=== PATIENT | male | born 1960 | race Caucasian/White ===

== ENCOUNTER → 2021-06-24 08:18 | Outpatient (BNVA) | payer OTHER, SELFPAY | PROVIDERS: Family Provider Internal Medicine; PCP Clinical Nurse Specialist Adult Health; Visit Provider Thoracic Surgery (Cardiothoracic Vascular Surgery) | DX: Z01.818 Encounter for other preprocedural examination (principal); Z20.822 Contact with and (suspected) exposure to COVID-19 | CPT/HCPCS: 87635 ==

== ENCOUNTER 2021-06-29 08:57 | Day surgery (SDC) | payer OTHER, SELFPAY ==
[2021-06-24 09:41] VITALS: BMI 34.5
[2021-06-24 10:11] LABS: Basophils # 0.1 10^3/uL (0.0-0.1); Basophils % 0.8 %; Eosinophils # 0.2 10^3/uL (0.0-0.8); Eosinophils % 2.8 %; Hematocrit 48.3 % (42.0-52.0); Hemoglobin 16.1 g/dL (11.7-16.6); Lymphocytes # 2.5 10^3/uL (0.8-4.8); Lymphocytes % 34.1 %; Mean Corpuscular HGB Conc 33.3 g/dL (30.0-36.0); Mean Corpuscular Hemoglobin 32.2 pg (28.0-34.0); Mean Corpuscular Volume 96.6 fl (80-94); Mean Platelet Volume 11.1 fL (7.4-10.4); Monocytes # 0.7 10^3/uL (0.2-0.9); Monocytes % 9.6 %; Neutrophils # 3.89 10^3/uL (1.8-7.7); Neutrophils % 52.6 %; Nucleated Red Blood Cells % 0 %; Platelet Count 218 10^3/cmm (130-400); Red Cell Distribution Width 13.2 % (12.1-15.1); White Blood Count 7.4 10^3/uL (4.0-10.0)
[2021-06-24 10:29] LABS: Anion Gap 12.1 (5-19); Blood Urea Nitrogen 15 mg/dL (8-23); Calcium 9.2 mg/dL (8.5-10.5); Carbon Dioxide 27 mmol/L (22-29); Chloride 103 mmol/L (98-107); Glomerular Filtration Rate 85.8 mL/min (90-130); Glucose 111 mg/dL (65-115); Osmolality Calculated 288 mOsm/kg (285-295); Potassium 4.1 mmol/L (3.5-5.1); Sodium 138 mmol/L (136-145)
--- NOTE | 2021-06-24 10:36 | P.ANESASSM_ITS ---
Pre-Anesthetic Assessment Pre-Anesthetic Assessment: Height/Weight: Height 1.68 m Weight 97.069 kg Proposed Procedure: Operation Date: 06/29/21 09:30 Proposed Procedures p Pacemaker Exchange(Not Applicable) - Memo Pedroza MD Was Beta Mary taken within 24 hours: Yes Was Clonidine taken within 24 hours: N/A Social: Social History: No alcohol and No tobacco Exam: Pre-Anes Outpt Exam: alert, oriented x 3, clear to auscultation bilaterally and regular rate & rhythm Airway: Submandibular: WNL Cervical ROM: WNL MP: 2 Dentition: False (upper) CV/HEM: CV/HEM: Angina (Stable), Arrythmia, CAD and HTN Comments: Pacemaker GI: GI: GERD Metabolic: Metabolic: Morbid obesity Anesthetic Plan: ASA status: 3 Anesthesia: MAC Risk of > 500 ml blood loss (7ml/kg in children): No PFSH Anesthesia PFSH: Medical History Heart block atrioventricular HTN (hypertension) Surgical History S/P cardiac pacemaker procedure Family History Mother CAD (coronary artery disease) Sister CAD (coronary artery disease) Brother CAD (coronary artery disease) Father Cancer Data Anesthesia CBC & Chem 7: 06/24/21 09:56 06/24/21 09:56 Other Labs: Laboratory Results - last 48 hr 06/24/21 06/24/21 09:56 09:56 WBC 7.4 RBC 5.00 Hgb 16.1 Hct 48.3 MCV 96.6 H MCH 32.2 MCHC 33.3 RDW 13.2 Plt Count 218 MPV 11.1 H Neut % (Auto) 52.6 Lymph % (Auto) 34.1 [place] % (Auto) 9.6 Eos % (Auto) 2.8 Baso % (Auto) 0.8 Neut # (Auto) 3.89 Lymph # (Auto) 2.5 [place] # (Auto) 0.7 Eos # (Auto) 0.2 Baso # (Auto) 0.1 Nucleated RBC % (auto) 0 Nucleated RBCs # 0.0 Sodium 138 Potassium 4.1 Chloride 103 Carbon Dioxide 27 Anion Gap 12.1 BUN 15 Creatinine 0.9 GFR Calculation 85.8 L Glucose 111 Calculated Osmolality 288 Calcium 9.2 Cardiac Studies: No Data to Display
[2021-06-29] VITALS (7 sets, daily range): BP systolic 111–149; BP diastolic 66–80; PULSE 65–71; RESP 14–17; TEMP 36.4–36.5; O2SAT 94–98
--- NOTE | 2021-06-29 09:02 | XR_ITS ---
WS: [id number] XR chest 1V portable [id number] REASON FOR EXAM: Pacemaker generator exchange FINDINGS: The chest is unchanged compared to previous examination 04/14/2015. Battery pack over the left upper anterolateral chest with intact leads to the right atrium and right ventricular apex. No significant cardiomegaly. Calcified granulomatous disease in both hemithoraces. No active pulmonary parenchymal or pleural dise ase. XR/XR chest 1V portable [id number] IMPRESSION: Stable chest without acute abnormality.
[2021-06-29] MEDS: sodium chloride 0.9% 1,000 ML 30 ML IV (09:43)
[2021-06-29 10:03] LABS: Basophils # 0.1 10^3/uL (0.0-0.1); Basophils % 0.8 %; Eosinophils # 0.3 10^3/uL (0.0-0.8); Eosinophils % 2.8 %; Hematocrit 51.1 % (42.0-52.0); Hemoglobin 16.5 g/dL (11.7-16.6); Lymphocytes # 4.1 10^3/uL (0.8-4.8); Lymphocytes % 38.9 %; Mean Corpuscular HGB Conc 32.3 g/dL (30.0-36.0); Mean Corpuscular Hemoglobin 32.4 pg (28.0-34.0); Mean Corpuscular Volume 100.4 fl (80-94); Mean Platelet Volume 11.6 fL (7.4-10.4); Monocytes % 9.4 %; Neutrophils # 5.04 10^3/uL (1.8-7.7); Neutrophils % 47.9 %; Nucleated Red Blood Cells % 0 %; Platelet Count 244 10^3/cmm (130-400); Red Blood Count 5.09 10^6/uL (4.1-5.3); Red Cell Distribution Width 13.1 % (12.1-15.1); White Blood Count 10.5 10^3/uL (4.0-10.0)
--- NOTE | 2021-06-29 10:17 | ANES.PAUD2 ---
Pre-Anesthetic Update Pre-Anesthetic Assessment: Date of Surgery/Procedure: 06/29/21 Preop Diagnosis: Pacemaker end of service Proposed Procedure: Operation Date: 06/29/21 10:40 Proposed Procedures p Pacemaker Exchange(Not Applicable) - Memo Pedroza MD Any changes to Pre-Anesthetic Assessment?: No Last Intake: Intake Last Liquid Date 06/28/21 Last Liquid Time 19:00 Last Solid Date 06/28/21 Last Solid Time 19:00 Labs Last 48hrs: Laboratory Results - last 48 hr 06/29/21 09:35 WBC 10.5 H RBC 5.09 Hgb 16.5 Hct 51.1 MCV 100.4 H MCH 32.4 MCHC 32.3 RDW 13.1 Plt Count 244 MPV 11.6 H Neut % (Auto) 47.9 Lymph % (Auto) 38.9 [place] % (Auto) 9.4 Eos % (Auto) 2.8 Baso % (Auto) 0.8 Neut # (Auto) 5.04 Lymph # (Auto) 4.1 [place] # (Auto) 1.0 H Eos # (Auto) 0.3 Baso # (Auto) 0.1 Nucleated RBC % (a uto) 0 Nucleated RBCs # 0.0 Vitals: Temperature 97.5 F L 06/29/21 09:09 Temperature Source Temporal Artery S can 06/29/21 09:09 Pulse Rate 65 06/29/21 09:09 Respiratory Rate 17 06/29/21 09:09 Blood Pressure 149/70 06/29/21 09:09 Blood Pressure Radha n 96 06/29/21 09:09 Pulse Oximetry 98 06/29/21 09:09 Oxygen Delivery Me thod 06/29/21 09:12 Exam: Pre-Anes Outpt Exam: alert, oriented x 3, clear to auscultation bilaterally and regular rate & rhythm Cardiac Studies: No Data to Display
[2021-06-29 10:20] LABS: Blood Urea Nitrogen 23 mg/dL (8-23); Carbon Dioxide 21 mmol/L (22-29); Chloride 102 mmol/L (98-107); Glucose 106 mg/dL (65-115); Osmolality Calculated 284 mOsm/kg (285-295); Sodium 135 mmol/L (136-145)
[2021-06-29 10:20] LABS: Add Urine Microscopic? NO
[2021-06-29 10:22] LABS: Anion Gap 16.5 (5-19); Potassium 4.5 mmol/L (3.5-5.1)
[2021-06-29 10:22] LABS: Charge for UA Resulting for Rev
[2021-06-29 10:23] LABS: Bilirubin Urine 1+ (Negative); Blood Urine Neg (Negative); Glucose Urine UA Norm (Normal); Ketones Urine Negative (Negative); Leukocyte Esterase Urine Negative (Negative); Nitrate Urine Negative (Negative); Protein Urine Neg (Negative); Specific Gravity, Urine 1.015 (1.005-1.030); Urine Appearance SL Hazy (CLEAR); Urine Color Yellow (Yellow); Urobilinogen Urine 1 mg/dL (Negative); pH Urine 5 (5-7)
--- NOTE | 2021-06-29 13:02 | W.PM.OPSUD ---
Surgery/Procedure H&P Update DATE OF PROCEDURE: June 29, 2021 DATE H&P PERFORMED: 06/12/21 H&P UPDATE INFORMATION: I have reviewed H&P completed within last 30 days, I have examined patient prior to procedure and No changes to prior documentation PREOP DIAGNOSIS: Pacemaker end of service PRIMARY INDICATION FOR PROCEDURE: Pacemaker at end of service. PLANNED PROCEDURE: Operation Date: 06/29/21 10:40 Proposed Procedures p Pacemaker Exchange(Not Applicable) - Memo Pedroza MD
[2021-06-29] MEDS: ceFAZolin 1,000 mg SDV 1000 MG IRRIGATION (13:49)
[2021-06-29] MEDS: lidocaine 1% INJ 20 mL 12 ML SUBCUT (13:49)
--- NOTE | 2021-06-29 14:48 | P.OP_ITS ---
Operative Report Date of procedure: June 29, 2021 Pre-op Diagnosis: Pacemaker end of service Post-op diagnosis: same Procedure Done: Pacemaker generator exchange Implants: [employer]onic pacemaker Specimens removed/disposition: Depleted pacemaker return to [employer] equal opportunity representative Pathology: none sent Surgeon: Memo Pedroza Anesthesia: MAC and Local Complications: None Condition: stable Disposition: PACU Brief History: Mr. Avalos is a pleasant 60-year-old gentleman with a dual chamber pacemaker in place with generator now end of service. His pacemaker system was implanted in [address] Rao. It has been functioning well, now with the pacing generator depleted. He presents today for planned pacemaker generator exchange. Details and risk of the procedure were carefully and frankly discussed. Proper consents were reviewed and signed. Procedure: Mr. Avalos was appropriately positioned and sterilely prepped and draped. IV consicious sedation was given with anesthesia monitoring. 1% lidocaine was infiltrated through the prior insertion incision site. # 15 sca lpel blade was used to incise the skin down to subcutaneous layer. Subsequently, using sharp and blunt dissection the pseudocapsule to the old generator was reached and opened with a scalpel blade. This area was then enhanced utilizing Metzenbaum scissors with care taken not to injure the pacing leads. Once the pocket was adequate opened, hemostats were utilized to deliver the old generator. Set screws were released and the leads were removed and inserted properly into the new generator with set screws then secured. The old generator was removed from the field. The incision was irrigated with antibiotic solution. Hemostasis was confirmed. The new generator was placed back into the old subcutaneous pocket. The wound was then closed in 2 layers of 3-0 Vicryl suture. Skin was closed in a subcuticular manner with 4-0 undyed Vicryl suture. A 2 layer pressure dressing was then applied. The entire system was interrogated and appropriate parameters obtained. Patient tolerated pro cedure well and was taken to the recovery room in stable condition. I did domestic violence counselor with his at the completion of the procedure. Med[employer] generator is model number [id number] serial number:[id number] Right atrial lead has a sensing of 4.4 mV with an impedance of 380 ohms and a threshold of 0.5 V. Right ventricular lead is paced with an impedance of 573 ohms and a threshold of 1.0 V. Presently, he is pacemaker dependent.
--- NOTE | 2021-06-29 14:59 | ANE.PACU2 ---
Inpatient post-anesthesia follow up: Airway intact: Yes Vital signs: Temperature 97.7 F Pulse Rate 71 Respiratory Rate 17 Blood Pressure 111/80 Pulse Oximetry 97 Oxygen Delivery Me thod Room Air Oxygen Flow Rate Fraction of Inspir ed Oxygen Hydration adequate: Yes Nausea and vomiting: No Pain level: 1 Mental status: Baseline
== END 2021-06-29 15:27 | disposition home or self-care (01) ==
PROVIDERS: Anesthesiology; PCP Clinical Nurse Specialist Adult Health; Visit Provider Thoracic Surgery (Cardiothoracic Vascular Surgery)
PROC: 0JPT0PZ Removal of Cardiac Rhythm Related Device from Trunk Subcutaneous Tissue and Fascia, Open Approach (ICD-10-PCS; CPT 33228; principal; 2021-06-29 10:30)
DX: Z45.010 Encounter for checking and testing of cardiac pacemaker pulse generator [battery] (principal); Z79.82 Long term (current) use of aspirin; I10 Essential (primary) hypertension; E66.01 Morbid (severe) obesity due to excess calories; Z68.34 Body mass index [BMI] 34.0-34.9, adult; I25.10 Atherosclerotic heart disease of native coronary artery without angina pectoris
CPT/HCPCS: 33228; 71045; 80048; 81003; 85025; C1786; J0690; J2370; J2704; J3010; J7030

== ENCOUNTER → 2022-07-20 08:23 | Outpatient (BNVA) | payer OTHER, SELFPAY | PROVIDERS: PCP Clinical Nurse Specialist Adult Health; Visit Provider Clinical Nurse Specialist Adult Health | DX: E78.5 Hyperlipidemia, unspecified (principal); I10 Essential (primary) hypertension | CPT/HCPCS: 80053; 80061; 85025 ==

== ENCOUNTER → 2023-06-28 09:31 | Outpatient (BNVA) | payer OTHER, SELFPAY | PROVIDERS: PCP Clinical Nurse Specialist Adult Health; Visit Provider Clinical Nurse Specialist Adult Health | DX: I10 Essential (primary) hypertension (principal); R06.02 Shortness of breath; J06.9 Acute upper respiratory infection, unspecified; Z20.822 Contact with and (suspected) exposure to COVID-19 | CPT/HCPCS: 80053; 80061; 85025; 87400; 87426 ==

== ENCOUNTER → 2024-03-29 09:26 | Outpatient (BNVA) | payer OTHER, SELFPAY | PROVIDERS: PCP Clinical Nurse Specialist Adult Health; Visit Provider Clinical Nurse Specialist Adult Health | DX: I10 Essential (primary) hypertension (principal) | CPT/HCPCS: 80053; 80061; 84443; 85025 ==

== ENCOUNTER → 2024-11-26 09:23 | Outpatient (BNVA) | payer OTHER, SELFPAY | PROVIDERS: PCP Clinical Nurse Specialist Adult Health; Visit Provider Clinical Nurse Specialist Adult Health | DX: I25.10 Atherosclerotic heart disease of native coronary artery without angina pectoris (principal); I10 Essential (primary) hypertension; E78.5 Hyperlipidemia, unspecified | CPT/HCPCS: 80053; 80061; 82043; 85025 ==

== ENCOUNTER → 2025-03-25 10:00 | Outpatient (BNVA) | payer MEDICARE, SELFPAY | PROVIDERS: PCP Clinical Nurse Specialist Adult Health; Visit Provider Nurse Practitioner Family | DX: I25.10 Atherosclerotic heart disease of native coronary artery without angina pectoris (principal); E78.5 Hyperlipidemia, unspecified; I10 Essential (primary) hypertension; Z95.0 Presence of cardiac pacemaker; Z87.891 Personal history of nicotine dependence | CPT/HCPCS: 99213 ==

== ENCOUNTER → 2025-05-13 09:40 | Outpatient (BNVA) | payer MEDICARE, SELFPAY | PROVIDERS: PCP Clinical Nurse Specialist Adult Health; Visit Provider Clinical Nurse Specialist Adult Health | DX: I10 Essential (primary) hypertension (principal) | CPT/HCPCS: 80053; 80061; 85025 ==

== ENCOUNTER → 2025-08-12 09:24 | Outpatient (BNVA) | payer MEDICARE, SELFPAY | PROVIDERS: PCP Clinical Nurse Specialist Adult Health; Visit Provider Clinical Nurse Specialist Adult Health | DX: R73.9 Hyperglycemia, unspecified (principal); I25.10 Atherosclerotic heart disease of native coronary artery without angina pectoris; I10 Essential (primary) hypertension | CPT/HCPCS: 80048; 83036 ==